=== PATIENT | male | born 1995 | race African-American/Black ===

== ENCOUNTER 2019-12-28 23:01 | Emergency (ER) | payer OTHER ==
[~2019-12-28] VITALS: Ht 172.7 cm; Wt 90.0 kg
[2019-12-28 23:06] VITALS: BP 143/88
[2019-12-29] MEDS ORDERED: NALOXONE HCL 0.4 MG/ML 1ML VIAL IM ONE (00:15)
== END 2019-12-29 00:22 | disposition left against medical advice (07) ==
LOC: ER 23:01
DX: G93.40 Encephalopathy, unspecified (principal); T40.601A Poisoning by unspecified narcotics, accidental (unintentional), initial encounter; Y92.9 Unspecified place or not applicable; F17.200 Nicotine dependence, unspecified, uncomplicated
CPT/HCPCS: 96372; 99283; J2310

== ENCOUNTER 2020-01-05 01:11 | Emergency (ER) | payer BC, MEDICAID ==
[~2020-01-05] VITALS: Ht 180.3 cm; Wt 98.0 kg
[2020-01-05 01:13] VITALS: BP 126/81
[2020-01-05] MEDS ORDERED: ACETAMINOPHEN 325MG TABLET PO ONE (03:00)
== END 2020-01-05 03:27 | disposition home or self-care (01) ==
LOC: ER 01:11
DX: M54.9 Dorsalgia, unspecified (principal); R05 Cough
CPT/HCPCS: 71045; 99283

== ENCOUNTER 2020-02-03 11:30 | Emergency (ER) | payer BC, MEDICAID ==
[~2020-02-03] VITALS: Ht 177.8 cm; Wt 89.0 kg
[2020-02-03 11:33] VITALS: BP 122/86
== END 2020-02-03 12:00 | disposition home or self-care (01) ==
LOC: ER 11:30
DX: M25.571 Pain in right ankle and joints of right foot (principal); X50.1XXA Overexertion from prolonged static or awkward postures, initial encounter; Y93.02 Activity, running; Y92.9 Unspecified place or not applicable
CPT/HCPCS: 99281